=== PATIENT | male | born 1995 | race Two or more races ===

== ENCOUNTER 2019-01-05 19:30 | Emergency (ER) | payer OTHER ==
[2019-01-05 19:43] VITALS: BP 140/81
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
== END 2019-01-05 20:06 | disposition home or self-care (01) ==
LOC: ER 19:30
DX: S29.012A Strain of muscle and tendon of back wall of thorax, initial encounter (principal); M54.5 Low back pain; V49.50XA Passenger injured in collision with unspecified motor vehicles in traffic accident, initial encounter; M89.8X1 Other specified disorders of bone, shoulder; R25.2 Cramp and spasm; R42 Dizziness and giddiness; J45.909 Unspecified asthma, uncomplicated
CPT/HCPCS: 99283

== ENCOUNTER 2019-01-13 15:56 | Emergency (ER) | payer OTHER ==
[2019-01-13 16:02] VITALS: BP 141/87
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
== END 2019-01-13 16:49 | disposition home or self-care (01) ==
LOC: ER 15:56
DX: S46.812A Strain of other muscles, fascia and tendons at shoulder and upper arm level, left arm, initial encounter (principal); M54.5 Low back pain; V49.50XA Passenger injured in collision with unspecified motor vehicles in traffic accident, initial encounter
CPT/HCPCS: 99283